=== PATIENT | male | born 1990 | race African-American/Black ===

== ENCOUNTER 2023-04-16 13:25 | Emergency (ER) | payer SELFPAY ==
[~2023-04-16] VITALS: Ht 160 cm; Wt 66.0 kg
[2023-04-16 14:03] VITALS: O2SAT 100
[2023-04-16 14:25] VITALS: TEMP 98
[2023-04-16 17:15] VITALS: BP 118/70; PULSE 85; RESP 16
[2023-04-16] MEDS ORDERED: IBUPROFEN 600MG TABLET PO ONE (17:15)
[2023-04-16 17:43] LABS: CLARITY URINE CLEAR (CLEAR); COLOR URINE YELLOW (YELLOW); GLUCOSE URINE NEGATIVE (NEGATIVE); KETONES URINE NEGATIVE (NEGATIVE); LEUKOCYTE ESTERASE URINE NEGATIVE (NEGATIVE); NITRITE URINE NEGATIVE (NEGATIVE); OCCULT BLOOD URINE NEGATIVE (NEGATIVE); PH URINE 6.5 (4.5-8.0); PROTEIN URINE NEGATIVE (NEGATIVE); SPECIFIC GRAVITY URINE 1.019 (1.005-1.030); UROBILINOGEN URINE 0.2 E.U./dL (0.2-1.0)
[2023-04-16] MEDS ORDERED: DOXYCYCLINE HYCLATE 100MG CAPSULE PO ONE (18:00)
[2023-04-16] MEDS ORDERED: CEFTRIAXONE SODIUM 500 MG/VIAL IM ONE (18:00)
[2023-04-16] MEDS ORDERED: DOXY-456 MT (18:13)
[2023-04-16] MEDS ORDERED: IBUP-2029 MT (18:13)
== END 2023-04-16 19:04 | disposition home or self-care (01) ==
LOC: ER 13:55
DX: R30.0 Dysuria (principal)
CPT/HCPCS: 81003; 96372; 99283; J0696; Z7610 ×2